=== PATIENT | male | born 1990 | race Caucasian/White ===

== ENCOUNTER 2024-04-29 10:05 | Outpatient (CLI) | payer OTHER ==
--- NOTE | 2024-04-29 10:36 | Sleep Patient Instructions ---
Sleep Center Visit Summary - Patient Visit Information Reason for Visit: Initial consult for evaluation of sleep disordered breathing and other sleep issues. - Patient Instructions Instructions Attached: Sleep Study Additional Instructions: You will be completing a sleep study, either an in-lab polysomnography (PSG) or home sleep study (HST). You will follow-up in the sleep care office after the sleep study is completed to hear the results and talk about therapy, if needed. You will be called by our office staff to schedule this appointment, but you may contact us with any questions. - Clinic Information Contact: [facility] [address] [place] [address] [email or web address] T: [phone]
--- NOTE | 2024-04-29 10:38 | SLEEP CARE CONSULTATION ---
Information from patient questionnaire entered by Demian Childs. I have reviewed and concur with the information entered by Demian Childs. This document represents the service I personally performed and the decisions made by me, Talia Maravilla ARNP. History of Present Illness Service Date and Time: 04/29/2024 1005 Reason for Visit: New patient Chief Complaint: reports: Insomnia, Unrefreshed sleep, Snoring, Excessive daytime sleepiness, Observed pauses in breathing, Fatigue Date of Onset: 5 - 10 years Usual bedtime: 2200 Time it takes to fall asleep: 10 - 15 minutes Snores at night: Yes Observed to quit breathing while asleep: Yes Sleeps alone due to snoring: No Number of times waking at night: 1 - 2 Reasons for waking at night: reports: Other (Unknown reason). denies: Choking, Snoring, Gasping for air Toss, Turn, or Twitch while sleeping: Yes Recalls having dreams: No (happens remember) Usually gets out of bed at: 0500 Feels refreshed in the morning: No Morning headache: Yes (3-4 times a week; Usually resolves 1000 - 1200) Sleepy or fatigued during the day: Yes Ever fallen asleep while driving: No Takes day naps: No Dreams during day naps: No Prior sleep studies: No Additional HPI information: I had the pleasure of seeing JOHN DENG today regarding the possibility of him having a sleep disorder. His current complaints are excessive daytime sleepiness, fatigue, insomnia, observed pauses in breathing, snoring and unrefreshed sleep. He says he never feels rested. His says he snores "obnoxiously loud" at night. His father has sleep apnea. He says he can go to sleep in 15-20 minutes but once he wakes up whether 5-6 hours or 8 he cannot go back to sleep. 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 Patient is and lives in [place]. Have you smoked in the past 12 months: No Alcohol use: Yes Alcohol amount and frequency: 1 - 2 beers rarely, once or twice a month Caffeine use: Yes Caffeine amount and frequency: 1 coffee most days Family History Family history of sleep disordered breathing: Yes Family Hx Sleep Apnea: Father: Snoring, Sleep apnea - Untreated Allergies and Home Medications Known drug allergies: No Drug allergies reviewed: Yes Home medication list reviewed: Yes (as listed) Allergy and home medication list: Allergies No Known Drug Allergies Allergy (Verified 04/29/24 10:31) Home Medications Magnesium See Rx Instructions .ROUTE .COMPLEX 04/29/24 [History] Review of Systems Weight gain over past 5 years: 10 - 15 lbs Cardiovascular: reports: high blood pressure Gastrointestinal: denies: heartburn Neurological: denies: headaches, head trauma Psychiatric: reports: anxiety, depression Ear/Nose/Throat: reports: nose bleeds, wisdom teeth removed. denies: injury to nose, tonsillectomy Musculoskeletal: reports: back pain Physical Exam Vital signs obtained and entered by: Talia Coto NP Blood Pressure: 126/79 Cuff size: long (right arm) Heart Rate: 69 O2 Saturation: 98 Height: 6 ft 1.75 in Weight: 230 lb 9.6 oz Body Mass Index: 29.7 BMI Classification: Overweight Neck circumference: 17 (inches) Mouth and throat: narrow oropharynx Soft palate: long Hard palate: normal Uvula: normal Uvula visualization: 25% Mallampati Class III Tongue: enlarged in size with teeth friend on lateral edges Tonsils: 2+ Neck: normal w/o lymphadenopathy or thyromegaly Heart: regular rate and rhythm Lungs: clear bilaterally Impression and Plan 1. Suspected Obstructive Sleep Apnea-Hypopnea Syndrome, as suggested by a history of loud and irregular snoring, observed cessation of breath while asleep, morning headache, unrefreshed sleep, cognitive impairment, and excessive daytime sleepiness. Narrow oropharynx and obesity are common predisposing factors for obstructive sleep apnea-hypopnea syndrome. I recommend proceeding to polysomnography to confirm the diagnosis and to assess severity. If the patient has significant sleep disordered breathing, a manual CPAP titration study will also be performed to find the optimal treatment pressure. I informed the patient of what the sleep studies involve and after some discussion, obtained agreement to proceed. The pathophysiology of obstructive sleep apnea-hypopnea syndrome was discussed with the patient and health risks of cardiovascular and cerebrovascular disease if not treated. Risks of drowsy driving discussed in detail and patient advised to avoid long distance driving and to trap puller at the first sign of drowsiness. Patient agreed to plan. * Schedule polysomnography * Avoid long distance driving or driving when feeling sleepy. * Avoid alcohol, sedative and muscle relaxant around bedtime. * Attempt to lose weight. * Review instructions provided by trained office staff on how to prepare for the sleep study. * Return for follow-up after sleep study completed. Counseling Topics: Weight loss health impact Plan: PSG and follow up Visit Type: In Office Time Spent with Patient (minutes): 30 Provider Statement: I spent 100% of the Face to Face Visit with the patient with greater than 50% spent counseling the patient and coordination of care.
[2024-04-29 10:44] VITALS: BP 126/79; O2SAT 98
== END 2024-04-29 10:06 | disposition home or self-care (01) ==
LOC: SC 10:05
PROVIDERS: ATTEND Nurse Practitioner Family
DX: R06.83 Snoring (principal); G47.10 Hypersomnia, unspecified; R53.83 Other fatigue; G47.00 Insomnia, unspecified; R06.81 Apnea, not elsewhere classified; R51.9 Headache, unspecified; E66.3 Overweight; Z68.29 Body mass index [BMI] 29.0-29.9, adult
CPT/HCPCS: 99203; 99212

== ENCOUNTER 2024-05-09 09:17 | Outpatient (CLI) | payer OTHER | END 2024-05-09 09:18 | disposition home or self-care (01) | LOC: SC 09:17 | PROVIDERS: ATTEND Nurse Practitioner Family | DX: R06.83 Snoring (principal); R09.02 Hypoxemia; G47.10 Hypersomnia, unspecified; R53.83 Other fatigue; R51.9 Headache, unspecified; G47.8 Other sleep disorders; R06.81 Apnea, not elsewhere classified | CPT/HCPCS: 95806 ==

== ENCOUNTER 2024-05-24 12:50 | Outpatient (CLI) | payer OTHER ==
--- NOTE | 2024-05-24 13:07 | Sleep Patient Instructions ---
Sleep Center Visit Summary - Patient Visit Information Reason for Visit: Sleep study follow-up - Patient Instructions Instructions Attached: Snoring Tips Prevent Additional Instructions: Your sleep study today was negative for significant sleep disordered breathing. However, you did have elevated respiratory episodes when sleeping on your back. You should avoid sleeping on your back to control these respiratory episodes. You were found to have episodes of snoring. There are different ways to control snoring including weight loss, oral devices made by a dentist or surgical options through ENT specialist. You should not use oral devices that do not fit properly because they can affect your bite. You should also check insurance coverage of oral devices for snoring because they may not be cover well. You may obtain a referral to an ENT specialist through your primary provider. Follow-up as needed. - Clinic Information Contact: [facility] [address] [place] [address] [email or web address] T: [phone]
--- NOTE | 2024-05-24 13:09 | SLEEP CARE CONSULTATION ---
Information from patient questionnaire entered by Mariana Noel. I have reviewed and concur with the information entered by Mariana Noel. This document represents the service I personally performed and the decisions made by , Talia Maravilla ARNP. History of Present Illness Service Date and Time: 05/24/2024 1250 Initial [place] Sleepiness Scale score: 15 (in 2023) Current [place] Sleepiness Scale score: 13 (05/24/24) Additional HPI information: JOHN DENG returns for follow up and results of the recently performed home sleep study on 05/10/2024. The patient was informed of the following findings: No significant sleep disordered breathing with an average AHI of 3.7 and sil oxygen saturation of 87%. His supine AHI was elevated at 7.2. I explained the pathophysiology behind obstructive sleep apnea. Patient does not have sleep apnea and was advised how weight gain could increase the risk of developing sleep apnea in the future. I strongly encouraged the patient to lose weight. Patient does not have significant sleep disordered breathing but has elevated AHI in supine position so advised positional therapy. Methods to achieve positional management therapy were discussed; such as, positioning with pillows, wearing a T-shirt with tennis balls sewn into the back or commercially available products. Patient has mild snoring. Snoring can be reduced by weight loss. Weight loss is best achieved with diet consult. Patient instructed to contact PCP for referral. Snoring can also be treated with an oral appliance from a dentist. Advised to check insurance coverage. In addition, an ENT evaluation can be do to see if ot her treatment is indicated. Patient counseled not drink alcohol less than 4 hours before bedtime as it can increase snoring and apnea. Patient was cautioned about risks of drowsy driving until sleepiness symptoms resolve. Patient denies drowsy driving. Sleep Study - Results Type of Sleep Study: Home sleep study (COMPLETED 05/10/24) Prior sleep studies: No Polysomnography/Home Sleep Study results: Physician Impression: The quality of the study is good. The length of the study is adequate (> 240 minutes). Please also see the tabulated and graphic data. 1. No significant sleep disordered breathing, with an AHI of 3.7/hr and sil SaO2 of 87%. During the study, the patient had 5 apneas (5 obstructive, 0 central, 0 mixed) and 21 hypopneas. The longest episode lasted 73.0 seconds. Few respiratory events occurred almost exclusively during supine sleep (supine AHI was 7.2 and non-supine, 1.63). 2. Hypoxemia (ICD-10 R09.02), minimal, with the lowest oxygen saturation of 87 % and 1.2 minutes with SaO2 under 90%. Baseline oxygen saturation was normal (Average oxygen saturation was 94%). Allergies and Home Medications Known drug allergies: No Drug allergies reviewed: Yes Home medication list reviewed: Yes (no changes) Allergy and home medication list: Allergies No Known Drug Allergies Allergy (Verified 05/24/24 12:54) Review of Systems Review of systems same as previous: Yes (NO CHANGE) Physical Exam Vital signs obtained and entered by: MARIANA Ferreira MA Blood Pressure: 135/85 (RIGHT ARM) Cuff size: regular Heart Rate: 96 O2 Saturation: 100 Height: 6 ft 1.75 in Weight: 229 lb 9.6 oz Body Mass Index: 29.7 BMI Classification: Overweight Impression and Plan 1. Snoring but no significant sleep disordered breathing. However, his supine AHI was elevated at 7.2 and he should avoid sleeping supine to control mild apnea when sleeping on his back. Patient advised that often weight loss will reduce snoring as well as apnea risk. An oral appliance can also be used for snoring. This would require a dental consultation. Patient cautioned not to use other online appliances as can cause bite issues. A list of accredited dentists in area and one local dentist who makes oral appliances given. Patient is advised to check if insurance will cover. An ENT consult can also be helpful to determine if any other treatment is an option. 2. Overweight, unspecified. Currently patients BMI is 29.7. Obesity increases the risk of apnea, CPAP pressure requirements and overall health risks especially cardiovascular and diabetes. Thus patient is advised to lose weight. * Attempt to lose weight * Avoid alcohol consumption near bedtime * The patient is cautioned about driving until sleepiness is completely resolved. * Return as needed for follow up. Counseling Topics: Sleeping position, Weight loss health impact Follow up with Sleep Care in: as needed Visit Type: In Office Time Spent with Patient (minutes): 12 Provider Statement: I spent 100% of the Face to Face Visit with the patient with greater than 50% spent counseling the patient and coordination of care.
[2024-05-24 13:17] VITALS: BP 135/85; O2SAT 100
== END 2024-05-24 12:51 | disposition home or self-care (01) ==
LOC: SC 12:50
PROVIDERS: ATTEND Nurse Practitioner Family
DX: R06.83 Snoring (principal); E66.3 Overweight; Z68.29 Body mass index [BMI] 29.0-29.9, adult
CPT/HCPCS: 99212